=== PATIENT | female | born 2000 | race Caucasian/White ===

== ENCOUNTER 2019-07-24 22:49 | Emergency (ER) | payer SELFPAY ==
--- NOTE | 2019-07-24 23:05 | ER Document Report ---
ED Medical Screen (RME) - General Chief Complaint: Allergic Reaction Stated Complaint: RASH,DIFFICULTY BREATHING Time Seen by Provider: 07/24/19 23:00 Mode of Arrival: Ambulatory Information source: Parent Notes: 19-year-old female presented to ED for shortness of breath with rash to hands elbows and developing on her face. She states she is feeling like her heart is racing and she is short of breath. She states it is feeling like her throat swollen. She is alert oriented she is having an anxiety at this time also. Patient is with her mother. She states the only known allergy is yellow jackets. I have greeted and performed a rapid initial assessment of this patient. A comprehensive ED assessment and evaluation of the patient, analysis of test results and completion of medical decision making process will be conducted by an additional ED providers. - Related Data Allergies/Adverse Reactions: beeswax Allergy (Verified 07/24/19 23:00)
[2019-07-24] MEDS ORDERED: DIPHENHYDRAMINE HCL 50 MG/ML VIAL IV ONE (23:09)
[2019-07-24] MEDS ORDERED: FAMOTIDINE INJ/PF 20 MG/2 ML SDV IV ONE (23:10)
[2019-07-24] MEDS ORDERED: NORMAL SALINE 1000 ML 1,000 ML IV ONE (23:10)
[2019-07-24] MEDS ORDERED: METHYLPREDNISOLONE INJ 125 MG/2 ML SDV IV ONE (23:10)
--- NOTE | 2019-07-25 00:04 | ER Document Report ---
ED General - General Chief Complaint: Anxiety Stated Complaint: RASH,DIFFICULTY BREATHING Time Seen by Provider: 07/24/19 23:00 Mode of Arrival: Ambulatory TRAVEL OUTSIDE OF THE [place] IN LAST 30 DAYS: No - HPI Notes: Patient is a 19-year-old female who presents the emergency department for evaluation. She just moved to the area. Her mother is visiting. She believes she saw a rash on her elbow. She became very anxious. She felt palpitations, then started to feel like she was having difficulty breathing and as if her throat was closing. She does have a history of anxiety. She is never been on any medications, never seen a therapist for this before. She states that the rash is gone now. She does states she is frequent rashes, describes circular patches that are dry and scaly, commonly itch. - Related Data Allergies/Adverse Reactions: beeswax Allergy (Verified 07/24/19 23:00) Home Medications: None Past Medical History - General Information source: Patient, Parent - Social History Smoking Status: Never Smoker Chew tobacco use (# tins/day): No Frequency of alcohol use: None Family History: Reviewed & Not Pertinent Patient has suicidal ideation: No Patient has homicidal ideation: No Review of Systems - Review of Systems EENT: See HPI Cardiovascular: See HPI Skin: See HPI Physical Exam - Vital signs Vitals: Pulse 118 H 07/24/19 23:08 - Notes Notes: This is a pleasant but extremely anxious appearing 19-year-old female who appears her stated age in no acute distress. Vital signs reviewed, please refer to chart. Head is normocephalic, atraumatic. Pupils equal round, reactive to light. Neck is supple without meningismus. Heart is regular rate and rhythm. Lungs are clear to auscultation bilaterally. Abdomen is soft, nontender, normoactive bowel sounds throughout. Extremities without cyanosis, clubbing. Posterior calves are nontender. Peripheral pulses are equal. Skin is warm and dry. She does have small patches on her mid anterior right yoder consistent with eczematous changes. Patient is awake, alert, neurological exam is nonfocal. Course - Re-evaluation Re-evalutation: 07/25/19 00:03 Patient presents to the emergency department for evaluation. She was seen through triage. Triage was concerned that she could be having allergic reaction secondary to her sensation of her throat closing. 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 I do not see any significant rash on her elbow at this time. We talked at length about nummular eczema, which is what she seems to be describing in regards to her elbow patches. She is already medicated with Solu-Medrol, Pepcid, Benadryl. The Benadryl should certainly have some anxiolysis about it. Patient's heart rate went from the 130s down to 102 at this time. We will continue to monitor. 07/25/19 00:51 Patient is feeling significantly improved. Her heart rate is improved to 96. Her blood pressure is stable. We talked at length about anxiety. I talked to her about possible pharmacotherapy that could prevent these anxiety attacks, but strongly encouraged her to follow-up with therapy/psychiatry. She is amenable to this plan. I will write her a small amount of Vistaril to help her as needed. Otherwise, she is [facility] and given a referral of community resources. She is to return to the emergency department with worsening or new concerning symptoms of any sort. - Vital Signs Vital signs: Temp Pulse Resp BP Pulse Ox 98.4 F 93 16 128/82 H 99 07/25/19 01:25 07/25/19 01:25 07/25/19 01:25 07/25/19 01:25 07/25/19 01:25 - EKG Interpretation by Me Additional EKG results interpreted by me: 07/25/19 00:04 Sinus tachycardia. Normal axis and intervals. No acute ST changes concerning for ischemia or infarction. No old studies available for comparison. Discharge - Discharge Clinical Impression: Anxiety attack Condition: Stable Disposition: HOME, SELF-CARE Instructions: Anxiety ([facility]) Additional Instructions: Seek follow-up with therapy as discussed. Consider taking Vistaril as needed for severe anxiety. If you develop worsening or new concerning symptoms of any sort, return immediately to the emergency department for reevaluation. Prescriptions: Hydroxyzine Pamoate [Vistaril 25 mg Capsule] 25 mg PO TIDP PRN #30 capsule PRN Reason: Anxiety
[2019-07-25 01:30] VITALS: BP 128/82
--- NOTE | 2019-07-25 13:55 | EKG REPORT ---
SEVERITY:- OTHERWISE NORMAL ECG - SINUS TACHYCARDIA : Confirmed by: Julia Krause MD 25-Jul-2019 13:53:36
== END 2019-07-25 01:25 | disposition home or self-care (01) ==
LOC: ER 22:49
DX: F41.9 Anxiety disorder, unspecified (principal); Z91.030 Bee allergy status
CPT/HCPCS: 93005; 99283; 96361; 96374; 96375; 93010; J1200; J2930; J7030; S0028

== ENCOUNTER 2019-12-21 23:17 | Emergency (ER) | payer OTHER ==
[2019-12-22 00:28] LABS: APPEARANCE,URINE CLEAR; BILIRUBIN,URINE NEGATIVE (NEGATIVE); COLOR,URINE YELLOW; GLUCOSE, URINE NEGATIVE (NEGATIVE); KETONES,URINE NEGATIVE (NEGATIVE); LEUKOCYTE ESTERASE,URINE NEGATIVE (NEGATIVE); NITRITE,URINE NEGATIVE (NEGATIVE); PROTEIN,URINE NEGATIVE (NEGATIVE); URINE SPECIFIC GRAVITY 1.019; UROBILINOGEN,URINE NEGATIVE mg/dL (<2.0)
--- NOTE | 2019-12-22 00:39 | ER Document Report ---
ED General - General Chief Complaint: Abdominal Pain Stated Complaint: ABDOMINAL PAIN Primary Care Provider: RYAN SCHWARZ MD [ACTIVE STAFF] - Follow up as needed TRAVEL OUTSIDE OF THE [place] IN LAST 30 DAYS: No - HPI Notes: 19-year-old female no significant medical history presents with approximately 1 week of suprapubic discomfort, dysuria, urgency, frequency that suddenly worsened ~1h for the past approximately 1 hour prior to presenting in the ED. I spoke to patient with her outside the room to ensure that there were no other symptoms patient did not want to discuss in front of and to get patient's permission to discuss her health in front of her which she gave. Patient during that time denied having any other sexual partners having any vaginal symptoms including vaginal discharge, sores, abnormal vaginal bleeding. Patient denies having any flank pain, vomiting, fever, immune compromise, having taken any medications or had any prior eval or antibiotics for the symptoms. - Related Data Allergies/Adverse Reactions: beeswax Allergy (Verified 07/24/19 23:00) Past Medical History - General Information source: Patient - Social History Smoking Status: Never Smoker Frequency of alcohol use: None Drug Abuse: None Family History: Reviewed & Not Pertinent Patient has homicidal ideation: No Review of Systems - Review of Systems Notes: REVIEW OF SYSTEMS: CONSTITUTIONAL : Denies fever, chills, or sweats. EENT: Denies recent cold/sinus symptoms, denies throat pain CARDIOVASCULAR: Denies chest pain, [place] RESPIRATORY: Denies cough, denies shortness of breath. GASTROINTESTINAL: Denies abdominal pain, nausea/vomiting. GENITOURINARY: Denies difficulty urinating, +painful urination. FEMALE GENITOURINARY: Denies abnormal vaginal bleeding, vaginal discharge. MUSCULOSKELETAL: Denies neck pain, back pain. SKIN: Denies rash or skin lesions. HEMATOLOGIC : Denies easy bruising or bleeding. LYMPHATIC: Denies swollen, enlarged glands. NEUROLOGICAL: Denies headache, denies change in gait. PSYCHIATRIC: Denies anxiety or stress or depression. Physical Exam - Vital signs Vitals: Temp Pulse Resp BP Pulse Ox 98.8 F 102 H 20 137/88 H 99 12/21/19 23:30 12/21/19 23:30 12/21/19 23:30 12/21/19 23:30 12/21/19 23:30 - Notes Notes: PHYSICAL EXAMINATION: GENERAL: Well-appearing, well-nourished and in no acute distress. HEAD: Atraumatic, normocephalic. EYES: Pupils equal round and appropriate constriction, sclera anicteric, conjunctiva are normal. ENT: nares patent, moist mucous membranes. NECK: Normal range of motion, supple without lymphadenopathy LUNGS: Breath sounds clear to auscultation bilaterally and equal. No wheezes rales or rhonchi. HEART: Regular rate and rhythm without murmurs ABDOMEN: Soft, nontender, no guarding, no masses, no CVAT, mild discomfort when palpating suprapubic area midline PELVIC: Scant white discharge in vaginal vault, no bleeding, office closed, normal office inspection, no CMT, no adnexal masses or tenderness EXTREMITIES: Normal range of motion, no pitting or edema. No cyanosis. NEUROLOGICAL: Awake, alert, conversing appropriately, moves all extremities spontaneously. PSYCH: Normal mood, normal affect. SKIN: Warm, Dry, normal turgor, no rashes or lesions noted. Course - Re-evaluation Re-evalutation: 12/22/19 02:00 Symptoms initially most suggestive of UTI, but on further discussion with patient sudden onset of pelvic pain that has since significantly improved grad ually and also spread throughout pelvis is consistent with hemorrhagic cyst rupture. Patient's hemoglobin is normal and his pain has significantly improved, no sign of surgical intervention being necessary. Patient pending ultrasound read. Low suspicion for torsion but will evaluate on ultrasound . Symptoms are not consistent with renal stone, pain is very mild and is only suprapubic. No signs of pyelo, no systemic symptoms, patient is very well- appearing. Mild discharge likely secondary to yeast infection as patient has no GC risk factors and this may be cause of patient's dysuria. patiently mildly tachycardic on arrival likely secondary to vitals being taken in triage after exertion which resolved at time of my exam without any intervention. 12/23/19 06:00 Ultrasound shows signs of vaginosis such as. Patient symptoms significantly improved since onset, no concerning amounts of blood requiring intervention, non-concerning hemoglobin, and no signs of torsion. Patient given copy of results and instructed to follow-up with [facility]. Patient given extensive return to ED precautions including signs of torsion which she demonstrated understanding of. - Vital Signs Vital signs: Temp Pulse Resp BP Pulse Ox 98.7 F 74 14 132/74 H 100 12/22/19 02:46 12/22/19 02:46 12/22/19 02:46 12/22/19 02:46 12/22/19 02:46 - Laboratory Result Diagrams: 12/22/19 00:30 12/22/19 00:30 Laboratory results interpreted by me: 12/22/19 00:30 Sodium 135.8 L Potassium 3.5 L Discharge - Discharge Clinical Impression: Pelvic pain Disposition: HOME, SELF-CARE Additional Instructions: Vaginal Yeast Infection You have evidence of a yeast infection -- called "adalberto." A vaginal yeast infection often causes itching and discharge. While not dangerous, it can be very unpleasant. A yeast infection often follows the use of powerful antibiotics. It is more likely to occur in diabetics. The treatment now is usually a single pill of Diflucan, but also an antifungal cream or suppository may be used for a few days. You do not need to avoid sexual intercourse. Recurrences are common. You can make a recurrence less likely by wearing cotton underwear and avoiding tight clothing. For mild recurrences, you can try [id number] creams or suppositories that are made specifically for yeast. If the symptoms do not resolve, you should follow up for re-examination. Sometimes treatment of the sexual partner is necessary if infections are recurrent. Pelvic Pain There are many causes of pain in the pelvic area. The cause could be the tubes, ovaries, uterus, intestines, appendix, pelvic muscles and connective tissue, or the urinary tract. The cause of your pelvic pain is not clear. Maria diane, it seems safe to treat you outside the hospital. If the pain sounds like a temporary problem, we sometimes wait to see if it goes away. Other patients may need additional tests, such as pelvic ultrasound or cultures. Conditions may change. Call us or come back for reexamination if any problems occur, such as: (1) Pain that becomes more severe, steady, or becomes concentrated in one specific area. Also, pain that is more severe with movement or coughing. (2) Vomiting that persists or becomes more frequent. (3) Blood in the vomitus, urine, or bowel movements. Blood in the stool may have a tarry or black appearance. (4) Shaking chills or fever greater than 100 degrees. (5) The abdomen becomes more distended or swollen. (6) Bowel movements cease. (7) Heavy vaginal bleeding.Ovarian Cyst Your examination suggests the presence of an ovarian cyst. This is a ball of fluid attached to the ovary. Ovarian cysts in women of child-bearing age are usually innocent. However, the cyst may cause pain when it grows or bursts. An innocent ovarian cyst will usually go away by itself. When the cyst becomes painful, you should rest. Pain medication may be req uired. Some women find a hot water bottle soothing. The pain usually resolves within one or two days. After menopause, an ovarian cyst may mean a tumor, and requires more aggressive evaluation -- usually surgery is recommended to remove or biopsy the cyst. A very large cyst requires evaluation at any age. Most cysts (even the innocent ones) require follow-up examination. Call the doctor or return at any time if the pain increases significantly, if you become faint, or if you experience vaginal bleeding. Follow-up with primary doctor and [facility] within 1 week. Return to ED immediately if you have sudden severe pelvic pain, fever, discharge, or any other worsening or alarming symptoms. Referrals: RYAN SCHWARZ MD [ACTIVE STAFF] - Follow up as needed
[2019-12-22 00:46] LABS: ABSOLUTE EOSINOPHILS # (AUTO) 0.1 10^3/uL (0.0-0.6); ABSOLUTE LYMPHOCYTES (AUTO) 2.7 10^3/uL (0.5-4.7); ABSOLUTE MONOCYTES (AUTO) 0.7 10^3/uL (0.1-1.4); ABSOLUTE NEUT (AUTO) 3.9 10^3/uL (1.7-8.2); BASOPHILS % (AUTO) 0.4 % (0-2); HEMATOCRIT 41.6 % (36.0-47.0); HEMOGLOBIN 14.6 g/dL (12.0-15.5); LYMPHOCYTES % (AUTO) 36.8 % (13-45); MEAN CORPUSCULAR HEMOGLOBIN 29.4 pg (27.0-33.4); MEAN CORPUSCULAR HGB CONC 35.1 g/dL (32.0-36.0); MEAN CORPUSCULAR VOLUME 84 fl (80-97); MONOCYTES % (AUTO) 9.2 % (3-13); PLATELET COUNT 216 10^3/uL (150-450); RED BLOOD COUNT 4.96 10^6/uL (3.72-5.28); RED CELL DISTRIBUTION WIDTH 12.9 % (11.5-14.0); SEGMENTED NEUTROPHILS % (AUTO) 52.6 % (42-78); TOTAL CELLS COUNTED % (AUTO) 100 %; WHITE BLOOD COUNT 7.4 10^3/uL (4.0-10.5)
[2019-12-22 01:01] LABS: ALBUMIN 4.7 g/dL (3.5-5.0); ALKALINE PHOSPHATASE 49 U/L (38-126); ANION GAP 8 (5-19); ASPARTATE AMINO TRANSFERASE 19 U/L (14-36); BILIRUBIN,TOTAL 0.4 mg/dL (0.2-1.3); BLOOD UREA NITROGEN 13 mg/dL (7-20); CALCIUM 9.7 mg/dL (8.4-10.2); CARBON DIOXIDE 27 mmol/L (22-30); CHLORIDE 101 mmol/L (98-107); GLUCOSE 107 mg/dL (75-110); POTASSIUM 3.5 mmol/L (3.6-5.0); TOTAL PROTEIN 7.9 g/dL (6.3-8.2)
--- NOTE | 2019-12-22 02:24 | RADIOLOGY REPORT (SQ) ---
Ultrasound of the pelvis: 12/22/2019 1:22 AM CDT HISTORY: 19-year-old patient with pelvic pain. TECHNIQUE: Multiple grayscale and color Doppler images of the pelvis were obtained transabdominally and transvaginally. COMPARISON: None available FINDINGS: The uterus measures 7.7 x 3.3 x 5.1 cm. The endometrium measures 4-5 mm in thickness. No myometrial mass is seen. Trace free intraperitoneal fluid is seen within the posterior cul-de-sac and right adnexa. The right ovary measures 4.4 x 2.5 x 3.9 cm. The left ovary measures 3.0 x 2.2 x 1.9 cm. Arterial and venous waveforms are obtained from both ovaries. The probable physiologic cysts at the right ovary. This may represent a ruptured hemorrhagic cyst. IMPRESSION: There is trace free fluid at the right adnexa and posterior cul-de-sac which may be from a ruptured hemorrhagic cyst.
[2019-12-22] MEDS ORDERED: FLUCONAZOLE 100 MG TABLET PO ONE (02:26)
[2019-12-22 02:47] VITALS: BP 132/74
[2019-12-22 04:18] LABS: BACTERIA (WET MOUNT) 4+ BACTERIA SEEN; EPITHELIALS (WET MOUNT) 3+ EPITHELIALS SEEN; T.VAGINALIS (WET MOUNT) NO TRICHOMONAS SEEN; WBCS (WET MOUNT) 3+ WBCS SEEN; YEAST (WET MOUNT) NO YEAST SEEN
[2019-12-22 04:19] LABS: RBCS (WET MOUNT) NO RBCS SEEN
[2019-12-22 05:48] LABS: CHLAM PCR NOT DETECTED (NOT DETECT)
[2019-12-23 13:17] LABS: PATH REVIEW PATHOLOGIST REVIEWED
== END 2019-12-22 02:47 | disposition home or self-care (01) ==
LOC: ER 23:17
DX: R10.2 Pelvic and perineal pain (principal); R10.30 Lower abdominal pain, unspecified; R30.0 Dysuria; R39.15 Urgency of urination; R35.0 Frequency of micturition
CPT/HCPCS: 36415; 76830; 80053; 81001; 81025; 83690; 85025; 87210; 87491; 87591; 99284